=== PATIENT | female | born 1960 | race Caucasian/White ===

== ENCOUNTER 2025-07-26 13:54 | Emergency (ER) | payer OTHER ==
[~2025-07-26] VITALS: Ht 160 cm; Wt 77.3 kg
[~2025-07-26 13:54] MED LIST: GABA-1181 PO; HYDR25TA2 PO; METF-1211 PO; [UNRECOGNIZED DRUG - CODE] PO
[2025-07-26 14:21] VITALS: TEMP 97.9
[2025-07-26 14:50] LABS: RED BLOOD CELL COUNT(AUTO) 4.30 MIL/uL (4.00-5.20); WHITE BLOOD COUNT (AUTO) 7.3 K/uL (4.5-11.0)
[2025-07-26 14:51] LABS: PLATELET COUNT (AUTO) 210 K/uL (150-450); RED CELL DISTRIBUTION WIDTH 12.9 % (11.5-14.5)
[2025-07-26 14:59] LABS: CALCIUM, TOTAL 9.5 mg/dL (8.8-10.5); CREATININE 1.0 mg/dL (0.60-1.30); GLOMERULAR FILTR. RATE CALC 56.0 mL/min (>60); GLUCOSE,RANDOM 146.0 mg/dL (70-110); SODIUM SERUM 132.0 mmol/L (136-145); UREA NITROGEN, BLOOD 19.0 mg/dL (7-18)
[2025-07-26 15:10] LABS: APPEARANCE,URINE HAZY (CLEAR); GLUCOSE, URINE (UA) NEGATIVE (NEGATIVE); LEUKOCYTE ESTERASE ,URINE SMALL (NEGATIVE); NITRATE,URINE NEGATIVE (NEGATIVE); OCCULT BLOOD,URINE NEGATIVE (NEGATIVE); SPECIFIC GRAVITIY, URINE 1.014 (1.003-1.030)
[2025-07-26 15:31] LABS: SQUAMOUS EPITHELIAL CELL,UR Few /LPF (None Seen)
[2025-07-26] MEDS: ONDANSETRON 4 MG TABLET PO ONE (17:02)
[2025-07-26] MEDS: KETOROLAC TROMETHAMINE 60 MG/2 ML VIAL IM ONE (17:02)
[2025-07-26 17:05] LABS: TROPONIN I-HIGH SENSITIVITY Less Than 4 ng/L (<51)
[2025-07-26 19:36] VITALS: BP 154/82; PULSE 89; RESP 13; O2SAT 98
[2025-07-26] MEDS ORDERED: IBUP-1554 PO (20:29)
[2025-07-26] MEDS ORDERED: CEPH-558 PO (20:29)
[2025-07-26] MEDS ORDERED: ONDA-104 PO (20:29)
[2025-07-26] MEDS ORDERED: ACET-2080 PO (20:29)
== END 2025-07-26 20:50 | disposition home or self-care (01) ==
LOC: EMS 13:54
DX: N39.0 Urinary tract infection, site not specified (principal); R10.A1 Flank pain, right side; R11.0 Nausea; E11.9 Type 2 diabetes mellitus without complications; I10 Essential (primary) hypertension; Z87.442 Personal history of urinary calculi; Z79.899 Other long term (current) drug therapy
CPT/HCPCS: 99285; 74176; 80048; 81001; 82150; 83690; 84484; 85025; 87086; 36415; 93005; 96372; J1885; Q0162; 87077